=== PATIENT | male | born 1960 | race Caucasian/White ===

== ENCOUNTER 2017-07-22 18:01 | Emergency (ER) | payer OTHER ==
[~2017-07-22] VITALS: Ht 177.8 cm; Wt 89.9 kg
[2017-07-22 18:38] LABS: BASOPHILS # (AUTO) 0.03 x10^3/uL (0-0.1); BASOPHILS % (AUTO) 1 % (0-1); EOSINOPHILS # (AUTO) 0.13 x10^3/uL (0-0.4); EOSINOPHILS % (AUTO) 2 % (1-7); LYMPHOCYTES % (AUTO) 22 % (22-44); MD NO; MEAN CORPUSCULAR HEMOGLOBIN 27.5 pg (27.5-34.5); MEAN CORPUSCULAR HGB CONC 33.4 g/dL (33.2-36.2); MEAN CORPUSCULAR VOLUME 82.2 fL (81-97); MEAN PLATELET VOLUME 9.3 fL (7.4-10.4); MONOCYTES # (AUTO) 0.34 x10^3/uL (0.2-0.8); MONOCYTES % (AUTO) 5 % (2-9); NEUTROPHILS # (AUTO) 4.72 x10^3/uL (1.8-6.8); NEUTROPHILS % (AUTO) 70 % (42-75); PLATELET COUNT 248 x10^3/uL (130-400); RED BLOOD COUNT 5.84 x10^6/uL (4.38-5.82); RED CELL DISTRIBUTION WIDTH 14.9 % (9.4-14.8)
[2017-07-22 18:45] LABS: ALBUMIN 2.9 g/dL (3.4-5.0); ANION GAP 6 mmol/L (5-15); CALCIUM 9.3 mg/dL (8.5-10.1); CHLORIDE 107 mmol/L (98-107); CREATININE 1.02 mg/dL (0.7-1.3)
[2017-07-22 18:48] LABS: TROPONIN I < 0.015 ng/mL (0.000-0.045)
[2017-07-22 19:10] VITALS: BP 164/85
== END 2017-07-22 19:58 | disposition home or self-care (01) ==
LOC: ED 19:30
DX: R55 Syncope and collapse (principal); I10 Essential (primary) hypertension; E11.65 Type 2 diabetes mellitus with hyperglycemia
CPT/HCPCS: 36415; 71046; 80048; 82040; 84484; 85025; 93005; 99285

== ENCOUNTER 2017-07-23 20:32 | Emergency (ER) | payer OTHER ==
[~2017-07-23] VITALS: Ht 177.8 cm; Wt 90.5 kg
[2017-07-23 21:33] LABS: BASOPHILS # (AUTO) 0.03 x10^3/uL (0-0.1); BASOPHILS % (AUTO) 0 % (0-1); EOSINOPHILS # (AUTO) 0.13 x10^3/uL (0-0.4); EOSINOPHILS % (AUTO) 2 % (1-7); LYMPHOCYTES # (AUTO) 1.59 x10^3/uL (1-3.4); LYMPHOCYTES % (AUTO) 21 % (22-44); MD NO; MEAN CORPUSCULAR HEMOGLOBIN 27.5 pg (27.5-34.5); MEAN CORPUSCULAR HGB CONC 33.5 g/dL (33.2-36.2); MEAN CORPUSCULAR VOLUME 82.1 fL (81-97); MEAN PLATELET VOLUME 9.3 fL (7.4-10.4); MONOCYTES # (AUTO) 0.38 x10^3/uL (0.2-0.8); MONOCYTES % (AUTO) 5 % (2-9); NEUTROPHILS # (AUTO) 5.56 x10^3/uL (1.8-6.8); NEUTROPHILS % (AUTO) 72 % (42-75); PLATELET COUNT 243 x10^3/uL (130-400); RED BLOOD COUNT 5.74 x10^6/uL (4.38-5.82); RED CELL DISTRIBUTION WIDTH 13.9 % (9.4-14.8)
[2017-07-23 21:44] LABS: ANION GAP 8 mmol/L (5-15); CALCIUM 9.1 mg/dL (8.5-10.1); CHLORIDE 106 mmol/L (98-107); CREATININE 0.91 mg/dL (0.7-1.3)
[2017-07-23 21:48] LABS: TROPONIN I < 0.015 ng/mL (0.000-0.045)
[2017-07-23 23:44] VITALS: BP 155/88
== END 2017-07-23 23:46 | disposition home or self-care (01) ==
LOC: ED 22:07
DX: R55 Syncope and collapse (principal); E11.65 Type 2 diabetes mellitus with hyperglycemia; I10 Essential (primary) hypertension
CPT/HCPCS: 36415; 80048; 82040; 84484; 85025; 93005; 99285

== ENCOUNTER 2017-12-07 05:53 | Day surgery (SDC) | payer OTHER ==
[~2017-12-07] VITALS: Ht 177.8 cm; Wt 84.5 kg
[~2017-12-07 05:53] MED LIST: AMLO5TAB7 PO; ATOR20TA PO; GLUC1CAP40 PO; INSU100I13 SQ; LOSA100T7 PO; METF850T10 PO; OCUSIGHT PO
[2017-12-07] MEDS ORDERED: SODIUM CHLORIDE 0.9% 1,000 ML IV SCH (06:52)
[2017-12-07 07:17] VITALS: BP 144/81
[2017-12-07] MEDS ORDERED: LIDOCAINE-MPF 2%, 2ML ONE (07:41)
[2017-12-07] MEDS ORDERED: MIDAZOLAM 1 MG/ML, 5ML ONE (07:54)
[2017-12-07 08:03] LABS: INTERNATIONAL NORMALIZED RATIO 0.93 (0.93-1.1); PROTHROMBIN TIME 9.7 Seconds (9.6-11.5)
[2017-12-07 12:29] VITALS: BP 124/76
[2017-12-07 12:36] VITALS: BP 124/76
[2017-12-07] MEDS ORDERED: CEFAZOLIN 1,000 MG ONE ×2 (15:05→15:48)
[2017-12-07] MEDS ORDERED: HEPARIN 1,000 UNITS/ML, 10ML ONE (15:38)
[2017-12-07] MEDS ORDERED: BUPIVACAINE/PF-EPI 0.5% 1:200K ONE (15:38)
[2017-12-07] MEDS ORDERED: NEOSTIGMINE 1 MG/ML, 10ML ONE (15:48)
[2017-12-07] MEDS ORDERED: ROCURONIUM 10 MG/ML,10ML ONE (15:48)
[2017-12-07] MEDS ORDERED: GLYCOPYRROLATE 0.2MG/1ML, 5ML ONE (15:48)
[2017-12-07] MEDS ORDERED: PROPOFOL 10 MG/ML, 20ML ONE (15:48)
[2017-12-07] MEDS ORDERED: hydrALAzine 20 MG/ML, 1ML IV PRN (16:00)
[2017-12-07] MEDS ORDERED: OXYcodone 5 MG/5 ML ORAL.SOL UDC PO PRN (16:00)
[2017-12-07] MEDS ORDERED: ONDANSETRON 2MG/ML, 2ML IV PRN (16:00)
[2017-12-07] MEDS ORDERED: PROMETHAZINE 25 MG/ML, 1ML IM PRN ×2 (16:00)
[2017-12-07] MEDS ORDERED: ACETAMINOPHEN 325 MG TABLET PO PRN (16:00)
[2017-12-07] MEDS ORDERED: FENTANYL PF 100 MCG/2ML IV PRN (16:00)
[2017-12-07] MEDS ORDERED: HYDROmorphone 1 MG/ML, 1ML IV PRN (16:00)
[2017-12-07] MEDS ORDERED: MORPHINE SULFATE 4 MG/ML, 1ML IVPush PRN (16:00)
[2017-12-07] MEDS ORDERED: LABETALOL 5MG/ML, 20ML IV PRN (16:00)
[2017-12-07] MEDS ORDERED: ONDANSETRON ODT 8 MG PO PRN (16:00)
[2017-12-07] MEDS ORDERED: PROMETHAZINE 25 MG/ML, 1ML IV PRN (16:00)
[2017-12-07] MEDS ORDERED: PROMETHAZINE 12.5 MG SUPP PR PRN (16:00)
[2017-12-07] MEDS ORDERED: MEPERIDINE/PF 25MG/0.5ML IVPush PRN (16:00)
[2017-12-07] MEDS ORDERED: PROMETHAZINE 25 MG SUPP PR PRN (16:00)
== END 2017-12-07 18:15 | disposition home or self-care (01) ==
LOC: OUT 05:53
PROVIDERS: ATTEND Colon & Rectal Surgery
DX: Z45.2 Encounter for adjustment and management of vascular access device (principal); C18.9 Malignant neoplasm of colon, unspecified; E78.00 Pure hypercholesterolemia, unspecified; I10 Essential (primary) hypertension; E11.40 Type 2 diabetes mellitus with diabetic neuropathy, unspecified; Z87.442 Personal history of urinary calculi; Z98.890 Other specified postprocedural states; Z72.89 Other problems related to lifestyle; Z88.1 Allergy status to other antibiotic agents; Z88.0 Allergy status to penicillin; Z88.8 Allergy status to other drugs, medicaments and biological substances
CPT/HCPCS: 36561; 47000; 71045; 76000; 76942; 82962; 85610; 99156; 99157; C1788; J0690; J1644; J2704; J2710; J3490; J7030; J2250

== ENCOUNTER 2017-12-07 07:45 | Day surgery (SDC) | payer OTHER ==
[2017-12-07] MEDS ORDERED: FENTANYL PF 100 MCG/2ML ONE ×2 (07:53→15:03)
[2017-12-07] MEDS ORDERED: NALOXONE 1 MG/ML, 2ML ONE (07:54)
[2017-12-07] MEDS ORDERED: FLUMAZENIL 0.1 MG/1 ML, 5ML ONE (07:54)
[2017-12-07] MEDS ORDERED: MIDAZOLAM 1 MG/ML, 5ML ONE (07:54)
[2017-12-07] MEDS ORDERED: MIDAZOLAM 1 MG/ML, 2ML ONE (15:04)
[2017-12-07] MEDS ORDERED: PROPOFOL 10 MG/ML, 20ML ONE (15:04)
[2017-12-07] MEDS ORDERED: CEFAZOLIN 1,000 MG ONE ×2 (15:05)
[2017-12-07] MEDS ORDERED: WATER-INJECTION,STERILE 10 ML IV ONE (15:05)
[2017-12-07] MEDS ORDERED: ROCURONIUM 10MG/ML,5ML ONE (15:06)
[2017-12-07] MEDS ORDERED: NEOSTIGMINE 1 MG/ML, 10ML ONE ×2 (15:07→16:22)
[2017-12-07] MEDS ORDERED: GLYCOPYRROLATE 0.4 MG/2 ML, 2ML ONE ×2 (15:07→16:22)
== END 2017-12-07 12:15 | disposition home or self-care (01) ==
LOC: RAD 07:45
PROVIDERS: ATTEND Colon & Rectal Surgery
DX: Z02.9 Encounter for administrative examinations, unspecified (principal)
CPT/HCPCS: 88307; 88333; J0690; J2250; J2704; J2710; J3010; J2310

== ENCOUNTER 2017-12-15 14:10 | Emergency (ER) | payer OTHER ==
[~2017-12-15] VITALS: Ht 177.8 cm; Wt 84.0 kg
[2017-12-15] MEDS ORDERED: SODIUM CHLORIDE 0.9% 1,000ML IVBOLUS ONE (14:30)
[2017-12-15 14:45] LABS: BASOPHILS # (AUTO) 0.04 x10^3/uL (0-0.1); BASOPHILS % (AUTO) 1 % (0-1); EOSINOPHILS % (AUTO) 0 % (1-7); LYMPHOCYTES # (AUTO) 0.88 x10^3/uL (1-3.4); LYMPHOCYTES % (AUTO) 11 % (22-44); MD NO; MEAN CORPUSCULAR HEMOGLOBIN 27.6 pg (27.5-34.5); MEAN CORPUSCULAR HGB CONC 33.1 g/dL (33.2-36.2); MEAN CORPUSCULAR VOLUME 83.5 fL (81-97); MEAN PLATELET VOLUME 9.1 fL (7.4-10.4); MONOCYTES # (AUTO) 0.25 x10^3/uL (0.2-0.8); MONOCYTES % (AUTO) 3 % (2-9); NEUTROPHILS # (AUTO) 6.68 x10^3/uL (1.8-6.8); NEUTROPHILS % (AUTO) 85 % (42-75); PLATELET COUNT 280 x10^3/uL (130-400); RED BLOOD COUNT 4.48 x10^6/uL (4.38-5.82); RED CELL DISTRIBUTION WIDTH 13.8 % (9.4-14.8)
[2017-12-15 14:53] LABS: ALANINE AMINOTRANSFERASE 20 U/L (12-78); ALBUMIN 2.9 g/dL (3.4-5.0); ANION GAP 11 mmol/L (5-15); CHLORIDE 107 mmol/L (98-107); CREATININE 1.23 mg/dL (0.7-1.3)
[2017-12-15 14:56] LABS: ALKALINE PHOSPHATASE 80 U/L (45-117); BILIRUBIN,TOTAL 0.7 mg/dL (0.2-1.0); TOTAL PROTEIN 6.6 g/dL (6.4-8.2)
[2017-12-15] MEDS ORDERED: SUMATRIPTAN 6MG/0.5ML SQ ONE ×2 (15:00→15:16)
[2017-12-15] MEDS ORDERED: DEXAMETHASONE 12 MG in SODIUM CHLORIDE 0.9% 50 ML IV ONE (15:00)
[2017-12-15] MEDS ORDERED: DIPHENHYDRAMINE 50 MG/ML, 1ML IVPush ONE (15:00)
[2017-12-15] MEDS ORDERED: METOCLOPRAMIDE 5 MG/ML, 2ML IVPush ONE (15:00)
[2017-12-15] MEDS ORDERED: KETOROLAC 30 MG/1 ML IVPush ONE (15:00)
[2017-12-15] MEDS ORDERED: DEXAMETHASONE 4 MG/ML, 1ML IVPush ONE (15:00)
[2017-12-15] MEDS ORDERED: METOCLOPRAMIDE 5 MG/ML, 2ML ONE (15:16)
[2017-12-15] MEDS ORDERED: KETOROLAC 30 MG/1 ML ONE (15:16)
[2017-12-15] MEDS ORDERED: GADOBUTROL 10 MMOL/10 ML PFS ONE (16:49)
[2017-12-15 18:14] VITALS: BP 157/72
== END 2017-12-15 18:26 | disposition home or self-care (01) ==
LOC: ED 16:35
DX: G43.019 Migraine without aura, intractable, without status migrainosus (principal); I10 Essential (primary) hypertension; E11.9 Type 2 diabetes mellitus without complications; C22.8 Malignant neoplasm of liver, primary, unspecified as to type; C78.5 Secondary malignant neoplasm of large intestine and rectum
CPT/HCPCS: 36415; 70450; 70553; 80053; 85025; 93005; 96365; 96368; 96372; 96375; 99285; A9585; J1100; J1200; J1885; J2765; J3030; J7030

== ENCOUNTER 2017-12-27 17:47 | Inpatient (IN) | payer OTHER ==
[~2017-12-27] VITALS: Ht 177.8 cm; Wt 82.0 kg
[~2017-12-27 17:47] MED LIST changes: -APIX5TAB PO; -TAMS0.4C2 PO
[2017-12-27] MEDS ORDERED: SODIUM CHLORIDE FLUSH 10ML SYR IVF ONE (19:30)
[2017-12-27 19:32] LABS: MEAN CORPUSCULAR HEMOGLOBIN 28.7 pg (27.5-34.5); MEAN CORPUSCULAR HGB CONC 33.7 g/dL (33.2-36.2); MEAN PLATELET VOLUME 9.2 fL (7.4-10.4); PLATELET COUNT 283 x10^3/uL (130-400); RED BLOOD COUNT 4.73 x10^6/uL (4.38-5.82); RED CELL DISTRIBUTION WIDTH 14.1 % (9.4-14.8)
[2017-12-27] MEDS ORDERED: HEPARIN 25,000 UNITS/500ML PMX 500 ML ONE (19:43)
[2017-12-27] MEDS ORDERED: HEPARIN 5,000 UNITS/ML, 1ML ONE ×2 (19:43→19:45)
[2017-12-27 19:44] LABS: ALANINE AMINOTRANSFERASE 21 U/L (12-78); ALBUMIN 3.2 g/dL (3.4-5.0); ANION GAP 9 mmol/L (5-15); CALCIUM 9.2 mg/dL (8.5-10.1); CHLORIDE 104 mmol/L (98-107); CREATININE 0.92 mg/dL (0.7-1.3)
[2017-12-27 19:46] LABS: ALKALINE PHOSPHATASE 81 U/L (45-117); BILIRUBIN,TOTAL 0.4 mg/dL (0.2-1.0); TOTAL PROTEIN 7.4 g/dL (6.4-8.2)
[2017-12-27 19:48] LABS: INTERNATIONAL NORMALIZED RATIO 0.94 (0.93-1.1); PROTHROMBIN TIME 9.7 Seconds (9.6-11.5)
[2017-12-27 19:58] LABS: BASOPHILS % (AUTO) 0 % (0-1); EOSINOPHILS % (AUTO) 0 % (1-7); LYMPHOCYTES # (AUTO) 0.46 x10^3/uL (1-3.4); LYMPHOCYTES % (AUTO) 5 % (22-44); MD SCAN; MONOCYTES # (AUTO) 0.05 x10^3/uL (0.2-0.8); MONOCYTES % (AUTO) 1 % (2-9); NEUTROPHILS # (AUTO) 9.04 x10^3/uL (1.8-6.8); NEUTROPHILS % (AUTO) 95 % (42-75)
[2017-12-27] MEDS ORDERED: HEPARIN 25,000 UNITS/500ML PMX 500 ML IV PRN (20:00)
[2017-12-27] MEDS ORDERED: morphine SULFATE 10 MG/ML, 1ML IVPush PRN (20:00)
[2017-12-27] MEDS ORDERED: ONDANSETRON 2MG/ML, 2ML IVPush PRN (20:00)
[2017-12-27] MEDS ORDERED: POLYETHYLENE GLYCOL 17 GM PACKET PO PRN (20:00)
[2017-12-27] MEDS ORDERED: PROMETHAZINE 25 MG/ML, 1ML IM PRN (20:00)
[2017-12-27] MEDS ORDERED: ONDANSETRON ODT 4 MG PO PRN (20:00)
[2017-12-27] MEDS ORDERED: HEPARIN 5,000 UNITS/ML, 1ML IV ONE (20:00)
[2017-12-27] MEDS ORDERED: BISACODYL 10 MG SUPP PR PRN (20:00)
[2017-12-27] MEDS ORDERED: DOCUSATE 100 MG CAPSULE PO PRN (20:00)
[2017-12-27 20:38] LABS: HEMOGLOBIN A1C 7.4 % (4.2-6.3)
[2017-12-27 21:17] LABS: FREE T4 (FREE THYROXINE) 0.97 ng/dL (0.76-1.46); THYROID STIMULATING HORMONE 1.08 mIU/L (0.358-3.740)
[2017-12-27 21:23] VITALS: BP 142/71
[2017-12-27] MEDS: AMLODIPINE 5 MG TABLET PO SCH (21:42)
[2017-12-27] MEDS: ATORVASTATIN 20 MG TABLET PO SCH (21:42)
[2017-12-27] MEDS: LOSARTAN 50MG TABLET PO SCH (21:42)
[2017-12-27] MEDS: INSULIN LISPRO 100 UNITS/ML, PEN SQ-INSULIN SCH (21:43)
[2017-12-27] MEDS: SODIUM CHLORIDE 0.9% 1,000 ML IV SCH (22:21)
[2017-12-28 02:19] LABS: BASOPHILS # (AUTO) 0.02 x10^3/uL (0-0.1); BASOPHILS % (AUTO) 0 % (0-1); EOSINOPHILS % (AUTO) 0 % (1-7); LYMPHOCYTES # (AUTO) 0.62 x10^3/uL (1-3.4); LYMPHOCYTES % (AUTO) 6 % (22-44); MD NO; MEAN CORPUSCULAR HEMOGLOBIN 28.6 pg (27.5-34.5); MEAN CORPUSCULAR HGB CONC 33.6 g/dL (33.2-36.2); MEAN CORPUSCULAR VOLUME 85.3 fL (81-97); MEAN PLATELET VOLUME 8.5 fL (7.4-10.4); MONOCYTES # (AUTO) 0.43 x10^3/uL (0.2-0.8); MONOCYTES % (AUTO) 5 % (2-9); NEUTROPHILS # (AUTO) 8.54 x10^3/uL (1.8-6.8); NEUTROPHILS % (AUTO) 89 % (42-75); PLATELET COUNT 248 x10^3/uL (130-400); RED BLOOD COUNT 4.24 x10^6/uL (4.38-5.82); RED CELL DISTRIBUTION WIDTH 13.7 % (9.4-14.8)
[2017-12-28 02:32] LABS: ALBUMIN 2.6 g/dL (3.4-5.0); ANION GAP 9 mmol/L (5-15); CALCIUM 8.6 mg/dL (8.5-10.1); CHLORIDE 107 mmol/L (98-107)
[2017-12-28 02:35] LABS: ALANINE AMINOTRANSFERASE 17 U/L (12-78); ALKALINE PHOSPHATASE 67 U/L (45-117); BILIRUBIN,TOTAL 0.4 mg/dL (0.2-1.0); CHOL/HDL RATIO 2.6; CHOLESTEROL, TOTAL 160 mg/dL (140-239); CREATININE 0.85 mg/dL (0.7-1.3); HDL CHOL % 38 % (26-37); HDL CHOLESTEROL (DIRECT) 61 mg/dL (40-60); LDL CHOLESTEROL,CALCULATED 82 mg/dL (54-169); LDL/HDL RATIO 1.3 (0.5-3.0); TRIGLYCERIDES 84 mg/dL (50-200); VLDL CHOLESTEROL 17 mg/dL (0-25)
[2017-12-28 02:37] VITALS: BP 141/77
[2017-12-28] MEDS: HEPARIN 5,000 UNITS/ML, 1ML IV PRN ×2 (03:27→10:15)
[2017-12-28] MEDS: INSULIN LISPRO 100 UNITS/ML, PEN SQ-INSULIN SCH ×4 (07:00→19:57)
[2017-12-28] MEDS: SODIUM CHLORIDE 0.9% 1,000 ML IV SCH (07:51)
[2017-12-28] MEDS: OCUSIGHT HOMEMEDPO SCH (07:55)
[2017-12-28 08:08] VITALS: BP 131/72
[2017-12-28] MEDS ORDERED: BUPIVACAINE/PF-EPI 0.5% 1:200K ONE (12:46)
[2017-12-28] MEDS ORDERED: HEPARIN 1,000 UNITS/ML, 10ML ONE (12:46)
[2017-12-28] MEDS ORDERED: FENTANYL PF 100 MCG/2ML ONE (13:57)
[2017-12-28] MEDS ORDERED: MIDAZOLAM 1 MG/ML, 2ML ONE (13:57)
[2017-12-28] MEDS ORDERED: ONDANSETRON 2MG/ML, 2ML ONE (13:58)
[2017-12-28] MEDS ORDERED: PROPOFOL 10 MG/ML, 20ML ONE (13:58)
[2017-12-28] MEDS ORDERED: CEFAZOLIN 1,000 MG ONE (13:58)
[2017-12-28] MEDS ORDERED: ALBUTEROL SULFATE 2.5 MG/3 ML NPPB PRN (15:00)
[2017-12-28] MEDS ORDERED: MORPHINE SULFATE 4 MG/ML, 1ML IVPush PRN (15:00)
[2017-12-28] MEDS ORDERED: MIDAZOLAM 1 MG/ML, 2ML IV PRN (15:00)
[2017-12-28] MEDS ORDERED: EPHEDRINE 50 MG/ML, 1ML IVPush PRN (15:00)
[2017-12-28] MEDS ORDERED: LABETALOL 5MG/ML, 20ML IV PRN (15:00)
[2017-12-28] MEDS ORDERED: OXYcodone 5 MG/5 ML ORAL.SOL UDC PO PRN (15:00)
[2017-12-28] MEDS ORDERED: FENTANYL PF 100 MCG/2ML IV PRN (15:00)
[2017-12-28] MEDS ORDERED: METOPROLOL 1 MG/ML, 5ML IV PRN (15:00)
[2017-12-28] MEDS ORDERED: MEPERIDINE/PF 25MG/0.5ML IVPush PRN (15:00)
[2017-12-28] MEDS ORDERED: hydrALAzine 20 MG/ML, 1ML IV PRN (15:00)
[2017-12-28 15:29] VITALS: BP 149/77
[2017-12-28] MEDS ORDERED: OXYcodone/APAP 5/325MG TABLET PO PRN (16:00)
[2017-12-28] MEDS ORDERED: TAMS0.4C2 PO (17:15)
[2017-12-28] MEDS ORDERED: HEPARIN 25,000 UNITS/500ML PMX 500 ML IV PRN (18:00)
[2017-12-28] MEDS: ATORVASTATIN 20 MG TABLET PO SCH (19:51)
[2017-12-28] MEDS: LOSARTAN 50MG TABLET PO SCH (19:51)
[2017-12-28] MEDS: AMLODIPINE 5 MG TABLET PO SCH (19:51)
[2017-12-28 20:09] VITALS: BP 146/81
[2017-12-28] MEDS ORDERED: TAMSULOSIN 0.4 MG CAP.ER.24H PO SCH (21:00)
[2017-12-29] MEDS ORDERED: [UNRECOGNIZED DRUG - REMARK] MC SCH (01:30)
[2017-12-29] MEDS: HEPARIN 5,000 UNITS/ML, 1ML IV PRN ×2 (01:45→09:10)
[2017-12-29 01:48] VITALS: BP 128/74
[2017-12-29] MEDS: INSULIN LISPRO 100 UNITS/ML, PEN SQ-INSULIN SCH ×2 (07:00→11:39)
[2017-12-29] MEDS: OCUSIGHT HOMEMEDPO SCH (07:52)
[2017-12-29 07:53] VITALS: BP 139/82
[2017-12-29 13:50] VITALS: BP 121/72
[2017-12-29] MEDS ORDERED: APIX5TAB PO (14:17)
== END 2017-12-29 15:34 | disposition home or self-care (01) | DRG 315 ==
LOC: ED 19:07 → EDIP 19:56 → 3NW 20:42 → DCLOUNGE 12-29 15:15
PROVIDERS: ADMIT Internal Medicine; ATTEND Family Medicine
PROC: 0JPT3WZ Removal of Totally Implantable Vascular Access Device from Trunk Subcutaneous Tissue and Fascia, Percutaneous Approach (ICD-10-PCS; 2017-12-28)
PROC: 02HV33Z Insertion of Infusion Device into Superior Vena Cava, Percutaneous Approach (ICD-10-PCS; 2017-12-28)
PROC: B5181ZA Fluoroscopy of Superior Vena Cava using Low Osmolar Contrast, Guidance (ICD-10-PCS; 2017-12-28)
PROC: 0JH63WZ Insertion of Totally Implantable Vascular Access Device into Chest Subcutaneous Tissue and Fascia, Percutaneous Approach (ICD-10-PCS; principal; 2017-12-28 14:30)
DX: T82.514A Breakdown (mechanical) of infusion catheter, initial encounter (principal); C18.9 Malignant neoplasm of colon, unspecified; I82.C11 Acute embolism and thrombosis of right internal jugular vein; I82.B11 Acute embolism and thrombosis of right subclavian vein; D64.9 Anemia, unspecified; E11.9 Type 2 diabetes mellitus without complications; E78.5 Hyperlipidemia, unspecified; E83.42 Hypomagnesemia; G43.909 Migraine, unspecified, not intractable, without status migrainosus; I10 Essential (primary) hypertension; I87.2 Venous insufficiency (chronic) (peripheral); Z79.4 Long term (current) use of insulin; Z80.0 Family history of malignant neoplasm of digestive organs; Z80.52 Family history of malignant neoplasm of bladder; Z85.038 Personal history of other malignant neoplasm of large intestine; Z88.1 Allergy status to other antibiotic agents; Z88.0 Allergy status to penicillin; Z88.8 Allergy status to other drugs, medicaments and biological substances; Y83.8 Other surgical procedures as the cause of abnormal reaction of the patient, or of later complication, without mention of misadventure at the time of the procedure; Y92.89 Other specified places as the place of occurrence of the external cause
CPT/HCPCS: 36415; 71045; 77001; 80053; 80061; 82962; 83036; 83735; 84439; 84443; 85025; 85520; 85610; 85730; 93005; 96365; 96375; G0378; J0690; J1644; J2250; J2405; J2704; J3010; C1788; J1815; J7030

== ENCOUNTER → 2017-12-27 | Outpatient (CLI) | payer OTHER ==
[~2017-12-27] MED LIST changes: +APIX5TAB PO; +TAMS0.4C2 PO
== END | disposition home or self-care (01) ==
LOC: RAD 16:33
PROVIDERS: ATTEND Internal Medicine Hematology & Oncology
DX: Z45.2 Encounter for adjustment and management of vascular access device (principal); I82.C11 Acute embolism and thrombosis of right internal jugular vein
CPT/HCPCS: 36598; 76000; 93971; J1642

== ENCOUNTER → 2018-04-11 | Outpatient (CLI) | payer OTHER ==
[~2018-04-11] MED LIST changes: +AMLO-150 PO; -AMLO5TAB7 PO; +APIX5TAB PO; +LOSA100T14 PO; -LOSA100T7 PO; +OMNIPAQUE 350 MG/ML, 100ML BOTTLE ONE; +TAMS0.4C2 PO
== END | disposition home or self-care (01) ==
LOC: CFH 03-09 12:15
PROVIDERS: ATTEND Internal Medicine Hematology & Oncology
DX: K63.9 Disease of intestine, unspecified (principal)
CPT/HCPCS: 71260; 74177; Q9967

== ENCOUNTER → 2018-04-15 | Outpatient (CLI) | payer OTHER ==
[~2018-04-15] MED LIST changes: -OMNIPAQUE 350 MG/ML, 100ML BOTTLE ONE
== END | disposition home or self-care (01) ==
LOC: PETCFH 12:32
PROVIDERS: ATTEND Internal Medicine Hematology & Oncology
DX: C18.7 Malignant neoplasm of sigmoid colon (principal); N20.0 Calculus of kidney
CPT/HCPCS: 78815; A9552

== ENCOUNTER → 2018-09-27 | Outpatient (CLI) | payer OTHER | END | disposition home or self-care (01) | LOC: PETCFH 07:10 | PROVIDERS: ATTEND Internal Medicine Hematology & Oncology | DX: C18.7 Malignant neoplasm of sigmoid colon (principal) | CPT/HCPCS: 78306; A9503 ==

== ENCOUNTER 2018-10-06 07:28 | Outpatient (CLI) | payer OTHER | END 2018-10-06 23:59 | disposition home or self-care (01) | LOC: ROC 07:28 | PROVIDERS: ATTEND Radiology Radiation Oncology | DX: C78.7 Secondary malignant neoplasm of liver and intrahepatic bile duct (principal); K21.9 Gastro-esophageal reflux disease without esophagitis; E78.00 Pure hypercholesterolemia, unspecified; I10 Essential (primary) hypertension; G43.909 Migraine, unspecified, not intractable, without status migrainosus; E11.40 Type 2 diabetes mellitus with diabetic neuropathy, unspecified; E11.319 Type 2 diabetes mellitus with unspecified diabetic retinopathy without macular edema; F12.90 Cannabis use, unspecified, uncomplicated; Z79.4 Long term (current) use of insulin; Z88.0 Allergy status to penicillin; Z88.1 Allergy status to other antibiotic agents; Z90.49 Acquired absence of other specified parts of digestive tract; Z72.89 Other problems related to lifestyle; Z86.718 Personal history of other venous thrombosis and embolism; Z85.038 Personal history of other malignant neoplasm of large intestine | CPT/HCPCS: 99214; G0463 ==

== ENCOUNTER → 2019-02-06 | Outpatient (CLI) | payer OTHER ==
[~2019-02-06] MED LIST changes: +GADOTERATE 10 MMOL/20 ML VIAL ONE
== END | disposition home or self-care (01) ==
LOC: CFH 13:40
PROVIDERS: ATTEND Internal Medicine Hematology & Oncology
DX: I63.9 Cerebral infarction, unspecified (principal); R51 Headache; H53.9 Unspecified visual disturbance; C18.7 Malignant neoplasm of sigmoid colon; G31.9 Degenerative disease of nervous system, unspecified; I99.8 Other disorder of circulatory system; Z83.3 Family history of diabetes mellitus; Z80.52 Family history of malignant neoplasm of bladder
CPT/HCPCS: 70553; A9575

== ENCOUNTER → 2019-03-13 | Outpatient (CLI) | payer OTHER ==
[~2019-03-13] MED LIST changes: -GADOTERATE 10 MMOL/20 ML VIAL ONE; +OMNIPAQUE 350 MG/ML, 100ML BOTTLE ONE
== END | disposition home or self-care (01) ==
LOC: CFH 11:57
PROVIDERS: ATTEND Internal Medicine Hematology & Oncology
DX: C18.7 Malignant neoplasm of sigmoid colon (principal); E04.1 Nontoxic single thyroid nodule
CPT/HCPCS: 71260; 74177; Q9967

== ENCOUNTER → 2020-07-12 | Outpatient (CLI) | payer MEDICARE ==
[~2020-07-12] MED LIST changes: -OMNIPAQUE 350 MG/ML, 100ML BOTTLE ONE
== END | disposition home or self-care (01) ==
LOC: CFH 14:52
PROVIDERS: ATTEND Psychiatry & Neurology Child & Adolescent Psychiatry
DX: I63.9 Cerebral infarction, unspecified (principal); G40.219 Localization-related (focal) (partial) symptomatic epilepsy and epileptic syndromes with complex partial seizures, intractable, without status epilepticus
CPT/HCPCS: 70551